=== PATIENT | male | born 1985 | race Two or more races ===

== ENCOUNTER 2021-07-14 00:32 | Emergency (ER) | payer MEDICAID, OTHER ==
[~2021-07-14] VITALS: Ht 175.3 cm; Wt 72.6 kg
[2021-07-14] MEDS ORDERED: KETOROLAC TROMETH 30 MG/ML 1ML VIAL IM ONE (01:45)
[2021-07-14 01:51] VITALS: BP 121/74
[2021-07-14] MEDS ORDERED: METHOCARBAMOL 500 MG TAB PO ONE (02:00)
[2021-07-14] MEDS ORDERED: METH500T22 PO (02:26)
[2021-07-14] MEDS ORDERED: IBUP800T27 PO (02:26)
== END 2021-07-14 02:35 | disposition home or self-care (01) ==
LOC: ER 00:32
DX: S46.911A Strain of unspecified muscle, fascia and tendon at shoulder and upper arm level, right arm, initial encounter (principal); X58.XXXA Exposure to other specified factors, initial encounter; Y93.89 Activity, other specified; Y92.89 Other specified places as the place of occurrence of the external cause; Y99.8 Other external cause status
CPT/HCPCS: 73030; 96372; 99283; J1885